=== PATIENT | female | born 1975 | race Caucasian/White ===

== ENCOUNTER 2020-02-25 09:34 | Emergency (ER) | payer MEDICARE, OTHER ==
[~2020-02-25] VITALS: Ht 154.9 cm; Wt 61.2 kg
--- OUTSIDE RECORDS SUMMARY | 2020-02-25 10:22 | XMS REPORT | Clinical Summary ---
Author Author [facility] Organization [facility] Address Unknown Phone Unavailable Care Team Providers Care Account Services Associate Name Role Phone Asked, No Pcp PCP Unavailable Allergies No Known Active Allergies Medications End Date Status Medication Sig Dispensed Refills Start Date Active permethrin (ELIMITE) 5 % Thoroughly 60 g 0 0 cream massage cream 9 from head to soles of feet; also apply on the hairline, neck, scalp, quaker, and forehead; 02/05/2020 tobramycin (Tobrex) 0.3 % Administer 2 5 mL 0 drops drops into 0 the left eye every 6 (six) hours for 5 days. Active Problems Not on file Encounters Care Team Description Date Type Specialty Jose R Baker NP-C [place], Neeraj Car MD Abrasion of left conjunctiva, initial en counter (Primary Dx); Foreign body of left eye, initial encounter 01/31/2020 Emergency Emergency Medicine 01/31/2020 Travel after 02/24/2019 Medical History Medical History Date Comments Disease of thyroid gland Social History Date Tobacco Use Types Packs/Day Years Used Current Every Day Smoker 0.5 Smokeless Tobacco: Never Used Drinks/Week oz/Week Comments Alcohol Use No Alcohol Habits Answer Date Recorded How often do you have a drink containing alcohol? Never 09/20/2018 How many drinks containing alcohol do you have on No t asked a typical day when you are drinking? How often do you have six or more drinks on one Not asked occasion? Sex Assigned at Date Recorded Not on file Date Recorded COVID-19 Exposure Response 01/31/2020 5:34 PM CDT In the last month, have you been in contact with No / Unsure someone who was confirmed or suspected to have Coronavirus / COVID-19? Last Filed Vital Signs Reading Time Taken Comments Vital Sign 164/92 01/31/2020 5:41 PM CDT Blood Pressure 93 01/31/2020 5:41 PM CDT Pulse 37 C (98.6 F) 01/31/2020 5:41 PM CDT Temperature 20 01/31/2020 5:41 PM CDT Respiratory Rate 99% 01/31/2020 5:41 PM CDT Oxygen Saturation - - Inhaled Oxygen Concentration 61.7 kg (136 lb) 01/31/2020 5:41 PM CDT Weight 154.9 cm (5' 1") 01/31/2020 5:41 PM CDT Height 25.7 01/31/2020 5:41 PM CDT Body Mass Index Plan of Treatment Not on file Procedures Comments Procedure Name Priority Date/Time Associated Diag nosis OR IVETTE Barrow,EYE,SUPERF Routine 01/31/2020 CONJUNC 7:09 PM CDT after 02/24/2019 Results * Foreign Body Removal - Ocular (01/31/2020 7:09 PM CDT) Narrative Performed At Jose R Baker NP-C 02/01/20 20 1:04 PM Foreign Body Removal - Ocular Performed by: Jose R Baker NP-C Authorized by: Jose R Baker NP- C Consent: Consent obtained: Verbal Consent given by: Patient Risks discussed: Bleeding, corneal damage, damage to surrounding structures, infection, incomplete remov al, globe perforation, pain, visual impairment and worsening of condition Alternatives discussed: No treatmen t Location: Location: L conjunctival Depth: Superficial Pre-procedure details: Imaging: None Anesthesia (see MAR for exact dosages): Local anesthetic: Tetracaine drops Procedure details: Localization method: Eyelid eversio n Removal mechanism: Moist cotton swa b Foreign bodies recovered: 1 Intact foreign body removal: yes Post-procedure details: OS visual acuity: 20/20 OD visual acuity: 20/30 Confirmation: No additional foreign bodies on visualization Patient tolerance of procedure: Ana Luisa erated well, no immediate complications after 02/24/2019 Insurance Type Payer Benefit Subscriber ID Effective Phone Address Plan / Dates Group HMO U[employer] MEDICAID [employer] [id number] 2019- MERGED WITH [facility] Present [facility] [phone] Advance Directives For more information, please contact: [phone] Patient Canvas Baster Explanation Type Date Recorded Advance Directives, Living Will and Medical Power of Bulk Fluids Handler Advance Directives, 09/20/2018 9:11 AM Living Will and Medical Power of Bulk Fluids Handler
--- OUTSIDE RECORDS SUMMARY | 2020-02-25 10:22 | XMS REPORT | Continuity of Care Document ---
Author Author [facility] t Organization [facility] Address [address] [place] [address] Phone Unavailable Care Team Providers Care Justice Court Deputy Clerk Name Role Phone Asked, Pcp No PCP Unavailable Samuel MEDEIROS-C, Sohan Odell Attphys Gunnar VORA, Josep Pickard Attphys Payers Payer Name Policy Type Policy Number Effective Date Expiration Date S sarah [facility] [place] [facility] [id number]/05/24 [id number] 2019 00:00:00 Clayton Islam Problems This patient has no known problems. Allergies, Adverse Reactions, Alerts Allergy Name Allergy Type Status Severity Reaction(s) Onset Date Inacti ve Date Treating Clinician Comments Source No Known Allergies DA Active U 2018-10-08 00:00:00 [facility] No Known Allergies DA Active U 2018-08-28 00:00:00 [facility] No Known Contrast Allergies DA Active U 2007-12-15 00:00: 00 [facility] No Known Drug Allergies DA Active U 2007-12-15 00:00:00 [facility] No Known Food Allergies DA Active U 2007-12-15 00:00:00 [facility] No Known Other Allergies DA Active U 2007-12-15 00:00:00 [facility] No Known Drug Intolerances DA Active U 2001-04-19 00:00:0 0 [facility] Social History Social Habit Start Date Stop Date Quantity Comments Source History SDOH Alcohol Std Drinks Toribio Campbellist History SDOH Alcohol Binge Toribio Gordillo Sex Assigned At Fredy Gordillo Exposure to SARS-CoV-2 (event) Not sure Toribio Gordillo Cigarettes smoked current (pack per day) - Reported 00:00:00 2020-01-31 00:00:00 Toribio Gordillo Tobacco use and exposure 2020-01-31 00:00:00 2020-01-31 00:00:00 Jeaneth cronin used Toribio Gordillo Alcohol intake 2020-01-31 00:00:00 2020-01-31 00:00:00 Current non-drinker of alcohol (finding) Toribio Gordillo History SDOH Alcohol Frequency 2018-09-20 00:00:00 2018-09-20 00:00:0 0 1 Toribio Gordillo Smoking Status Start Date Stop Date Source Current every day smoker 2020-01-31 00:00:00 Fredy Gordillo Medications Ordered Medication Name Filled Medication Name Start Date Stop Da te Current Medication? Ordering Clinician Indication Dosage Frequency Signature (SIG) Comments Components Source tobramycin (Tobrex) 0.3 % drops 2020-01-31 00:00:00 23:59:00 No 2[drp] Q6H Administer 2 drops into the left eye every 6 (six) hours for 5 days. Toribio Gordillo permethrin (ELIMITE) 5 % cream 2018-09-20 00:00:00 Yes Thoroughly massage cream from head to soles of feet; also apply on the hairline, neck, scalp, alevism, and forehead; Toribio moore Vital Signs Vital Name Observation Time Observation Value Comments Source Systolic blood pressure 2020-01-31 17:41:00 164 mm[Hg] Toribio Gordillo Diastolic blood pressure 2020-01-31 17:41:00 92 mm[Hg] Toribio Gordillo Heart rate 2020-01-31 17:41:00 93 /min Toribio Gordillo Body temperature 2020-01-31 17:41:00 37 Mami [place] Respiratory rate 2020-01-31 17:41:00 20 /min [place] Body height 2020-01-31 17:41:00 154.9 cm Toribio Gordillo Body weight 2020-01-31 17:41:00 61.689 kg Toribio Gordillo BMI 2020-01-31 17:41:00 25.70 kg/m2 Toribio Gordillo Oxygen saturation in Arterial blood by Pulse oximetry 01-30 17:41:00 99 /min Toribio Gordillo Procedures Procedure Date / Time Performed Performing Clinician Sourignacia e RICKY Barrow,EYE,SUPERF CONJUNC 2020-01-31 19:09:00 Donna Baker Encounters Start Date/Time End Date/Time [facility] Source 2020-01-31 00:00:00 2020-01-31 00:00:00 Emergency JOSE R BAKER [facility] [id number] Toribio Gordillo Results Test Description Test Time Test Comments Results Result Comments Source Foreign Body Removal - Ocular 2020-01-31 19:09:00 Jose R Baker, MALA-C 02/01/2020 1:04 PMForeign Body Removal - OcularPerformed by: Jose R Baker NP-CAuthorized by: Jose R Baker SUPPORT ASSOCIATE-C Consent: Consent obtained: Verbal Consent given by: Patient Risks discussed: Bleeding, corneal damage, damage to surrounding structures, infection, incomplete removal, globe perforation, pain, visual impairment and worsening of condition Alternatives discussed: No treatmentLocation: Location: L conjunctival Depth: SuperficialPre-procedure details: Imaging: NoneAnesthesia (see MAR for exact dosages): Local anesthetic: Tetracaine dropsProcedure details: Localization method: Eyelid eversion Removal mechanism: Moist cotton swab Foreign bodies recovered: 1 Intact foreign body removal: yes Post-procedure details: OS visual acuity: 20/20 OD visual acuity: 20/30 Confirmation: No additional foreign bodies on visualization Patient tolerance of procedure: Tolerated well, no immediate complications Toribio moore CT Chest w/o Contrast 2019-07-23 16:49:13 Michael t: BARBER COSTELLO Date/Time07/23/2019 10:54 CSTReason for ExamZ12.2ReportCT CHEST WITHOUT CONTRASTDictation location: [id number]: R05, Z12.2COMPARISON: NonePROCEDURE: Helical CT imaging of the chest was performed without intravenous contrast. Sagittal and coronal reformats were obtained. One or more of the following dose reduction techniques were used: Automated exposure control, adjustment of the mA and/or kV according to patient size, and/or utilization of iterative reconstruction technique.FINDINGS:LUNGS AND LARGE AIRWAYS: The lungs are well-expanded. Minimal scarring is seen in the right middle lobe. A 5 mm nodule is seen in the right middle lobe along the minor fissure (series 3, image 68). A 4 mm subpleural nodule is seen in the posterior left upper lobe (series 3, image 25).PLEURA: No pleural effusion or thickening is identified.HEART: The heart size is normal. No pericardial effusion.VESSELS: Atherosclerotic changes are present in the aorta and coronary arteries.MEDIASTINUM AND JEYSON: No lymphadenopathy.CHEST WALL AND LOWER NECK: Within normal limits.VISUALIZED UPPER ABDOMEN: Within normal limits.BONES: Within normal limits.IMPRESSION:Lung RADS category 2: Benign appearing nodules in the lungs. Continue annual screening with low dose chest CT in 12 months. Final Dictated by: MD Camacho Adam FDictated DT/TM: 07/23/2019 4:44 pmSigned by: MD Camacho Adam FSigned (Electronic Signature): 07/23/2019 4:49 pm - USG AMNIOCENTESIS 2007-08-08 00:00:00 Patient Name: BARBER COSTELLO Unit No: [id number] EXAMS: CPT CODE: [id number] US PREG AFTER 1ST TRI 40201 [id number] USG AMNIOCENTESIS [address] [facility] [address], [place] [address] OBSTETRICAL ULTRASOUND REPORT - Pat. Name: BARBER GUZMÁN Study Date: 07/27/2007 1:02pm Pat. No: [id number] Referring MD: Jorge Velasquez M.D. LMP: 02/27/2007 Fertilizer Supervisor: Julee S. Kashmir GA by LMP: 21.4 weeks , Age: 01 1975, 32 GA by 1st: GA Selected: 18.7 weeks (From Known E) GA by US: 19.0 weeks NAYE: 12/23/2007 Hist/Ind: + AFP, Amnio #3 - MEASUREMENTS AGE GROWTH EVALUATION Measurement GA Range Source % for 18.7 Ratios ------- ------- BPD 4.2 cm 18.6 wk (17.6-19.6) Hadlock BPD 45% FL/BPD 0.74 HC 15.8 cm 18.6 wk (17.0-20.2) Hadlock HC 47% FL/AC 0.22 AC 14.0 cm 19.1 wk (17.1-21.1) Hadlock AC 58% HC/AC 1.13 (1.07 - 1.26) FL 3.1 cm 19.2 wk (17.2-21.3) Hadlock FL 61% CI 0.79 (0.70 - 0.86) HL 3.1 cm 20.3 wk (18.6-22.0) Constanza HL 92% GA for sonogram 19.0 wk (17.6-20.4) Weight Estimate: based on (BPD,HC,AC,FL) Hadlock Weight: 289 gm (247-332) Hadlock : 0lbs, 10oz - CLINICAL SUMMARY Type of Gestation: Shaw Intrauterine in vertex presentation. size is appropriate for gestational age by weight. growth: Consistent with normal growth motion and organs seen: heart motion seen body and limb movements seen Four chamber heart observed Left ventricular outflow tract (LVOT) seen Right ventricular outflow tract (RVOT) seen Normal intracranial anato my seen Umbilical cord insertion in fetus seen stomach, Renal Fossa, Bladder and Spine seen Three vessel umbilical cord noted abnormalities observed: None seen at this exam Placental location: [facility] NAME: BARBER COSTELLO Radiology Department PHYS: Jorge Brewer MD [address] : 1975 AGE: 32 SEX: F [place], [place] [address] LOC: UNK PHONE #: [phone] EXAM DATE: 07/27/2007 STATUS: REG CLI FAX #: [phone] RAD NO: [id number] Page 1 Signed Report (CONTINUED) Patient Name: BARBER COSTELLO Unit No: [id number] EXAMS: CPT CODE: [id number] US PREG AFTER 1ST TRI 59950 [id number] USG AMNIOCENTESIS 38241 <Continued> Posterior Fundal Placental maturity : Grade 0 There is no evidence of placenta previa. Amniotic fluid volume is normal. Uterus and adnexa: No abnormalities seen Amniocentesis successfully performed by Dr. VELASQUEZ. Post procedure sonogram:Demonstrated normal cardiac activity Post procedure sonogram:No evidence of or placental hematoma Thank you for allowing us to see this patient. Tayler Marc M.D. " Manually signed by Tayler Marc M.D. Reported and signed by: Tayler Marc M.D. CC: Jorge Velasquez Technologist: Julee Marlow Probe: Trnscrbd D/ (5146) F.RAD.KXR Advanced To Signed Dt/Tm/User: 08/08/07 (0660) LAINE.KXR [facility] NAME: TRANGBARBER MYKE Radiology Department PHYS: Jorge Brewer MD [address] : 1975 AGE: 32 SEX: F [place] [address] LOC: UNK PHONE #: [phone] EXAM DATE: 07/27/2007 STATUS: REG CLI FAX #: [phone] RAD NO: [id number] Page 2 Signed Report Patient Name: BARBER COSTELLO Unit No: [id number] EXAMS: CPT CODE: [id number] US PREG AFTER TRI 68173 [id number] USG AMNIOCENTESIS 44485 <Continued> [facility] NAME: TRANGKRISTINEBARBER [place] Radiology Department PHYS: Jorge Brewer MD [address] : 1975 AGE: 32 SEX: F [place] [address] LOC: UNK PHONE #: [phone] EXAM DATE: 07/27/2007 STATUS: REG CLI FAX #: [phone] RAD NO: [id number] Page 3 Signed Report - US PREG AFTER 2007-08-08 00:00:00 Pat ient Name: BARBER COSTELLO Unit No: [id number] EXAMS: CPT CODE: [id number] US PREG AFTER TRI 21593 [id number] USG AMNIOCENTESIS [address] [facility] [address] [place], [place] [address] OBSTETRICAL ULTRASOUND REPORT - Pat. Name: BARBER GUZMÁN Study Date: 07/27/2007 1:02pm Pat. No: [id number] Referring MD: Jorge Velasquez M.D. LMP: 02/27/2007 Fertilizer Supervisor: Julee Marlow GA by LMP: 21.4 weeks , Age: 01 1975, 32 GA by 1st: GA Selected: 18.7 weeks (From Known E) GA by US: 19.0 weeks NAYE: 12/23/2007 Hist/Ind: + AFP, Amnio #3 - MEASUREMENTS AGE GROWTH EVALUATION Measurement GA Range Source % for 18.7 Ratios ------- ------- BPD 4.2 cm 18.6 wk (17.6-19.6) Hadlock BPD 45% FL/BPD 0.74 HC 15.8 cm 18.6 wk (17.0-20.2) Hadlock HC 47% FL/AC 0.22 AC 14.0 cm 19.1 wk (17.1-21.1) Hadlock AC 58% HC/AC 1.13 (1.07 - 1.26) FL 3.1 cm 19.2 wk (17.2-21.3) Hadlock FL 61% CI 0.79 (0.70 - 0.86) HL 3.1 cm 20.3 wk (18.6-22.0) Constanza HL 92% GA for sonogram 19.0 wk (17.6-20.4) Weight Estimate: based on (BPD,HC,AC,FL) Hadlock Weight: 289 gm (247-332) Hadlock : 0lbs, 10oz - CLINICAL SUMMARY Type of Gestation: Shaw Intrauterine in vertex presentation. size is appropriate for gestational age by weight. growth: Consistent with normal growth motion and organs seen: heart motion seen body and limb movements seen Four chamber heart observed Left ventricular outflow tract (LVOT) seen Right ventricular outflow tract (RVOT) seen Normal intracranial anato my seen Umbilical cord insertion in fetus seen stomach, Renal Fossa, Bladder and Spine seen Three vessel umbilical cord noted abnormalities observed: None seen at this exam Placental location: [facility] NAME: BARBER COSTELLO Radiology Department PHYS: Jorge Brewer MD [address] : 1975 AGE: 32 SEX: F [place], [place] [address] LOC: UNK PHONE #: [phone] EXAM DATE: 07/27/2007 STATUS: REG CLI FAX #: [phone] RAD NO: [id number] Page 1 Signed Report (CONTINUED) Patient Name: BARBER COSTELLO Unit No: [id number] EXAMS: CPT CODE: [id number] US PREG AFTER 1ST TRI 80036 [id number] USG AMNIOCENTESIS 39538 <Continued> Posterior Fundal Placental maturity : Grade 0 There is no evidence of placenta previa. Amniotic fluid volume is normal. Uterus and adnexa: No abnormalities seen Amniocentesis successfully performed by Dr. VELASQUEZ. Post procedure sonogram:Demonstrated normal cardiac activity Post procedure sonogram:No evidence of or placental hematoma Thank you for allowing us to see this patient. Tayler Marc M.D. " Manually signed by Tayler Marc M.D. Reported and signed by: Tayler Marc M.D. CC: Jorge Velasquez Technologist: Julee Marlow Probe: Trnscrbd D/ (1039) JOVANAXR Advanced To Signed Dt/Tm/User: 08/08/07 (1039) DanielINNANancyLeeannXR [facility] NAME: BARBER COSTELLO Radiology Department PHYS: Jorge Brewer MD [address] : 1975 AGE: 32 SEX: F [place] [address] LOC: UNK PHONE #: [phone] EXAM DATE: 07/27/2007 STATUS: REG CLI FAX #: [phone] RAD NO: [id number] Page 2 Signed Report Patient Name: BARBER COSTELLO Unit No: [id number] EXAMS: CPT CODE: [id number] US PREG AFTER 1ST TRI 95327 [id number] USG AMNIOCENTESIS 13980 <Continued> [facility] NAME: BARBER COSTELLO Radiology Department PHYS: Jorge Brewer MD [address] : 1975 AGE: 32 SEX: F [place] [address] LOC: UNK PHONE #: [phone] EXAM DATE: 07/27/2007 STATUS: REG CLI FAX #: [phone] RAD NO: [id number] Page 3 Signed Report - US PREG EVAL 1ST TRIMTR 2007-05-05 00:00:00 P atient Name: BARBER COSTELLO Unit No: [id number] EXAMS: CPT CODE: [id number] US PREG EVAL 1ST TRIMTR 28428 [id number] US PREG UT TRANSVAGINAL [address] [facility] [address] [place], [place] [address] OBSTETRICAL ULTRASOUND REPORT - Pat. Name: BARBER GUZMÁN Study Date: 05/02/2007 5:17pm Pat. No: [id number] Referring MD: Sergio Rivera M.D. LMP: 02/27/2007 Fertilizer Supervisor: Jo Ann Terry GA by LMP: 09.1 weeks , Age: 01 1975, 31 GA by 1st: GA Selected: 06.4 weeks (Sonographic) GA by US: 06.4 weeks NAYE: 12/23/2007 Hist/Ind: DATES SCAN 2 - MEASUREMENTS AGE GROWTH EVALUATION Measurement GA Range Source % for 06.4 Ratios ------- ------- CRL 0.6 cm 06.4 wk (05.9-06.9) Hadlock CRL 50% GA for sonogram 06.4 wk (05.9-06.9) Fe roxanna Weight Estimate: based on (CRL) Avg Weight: gm (-) - CLINICAL SUMMARY Type of Gestation: Shaw motion and organs seen: heart motion seen Amniotic fluid volume is GEST SAC 18 X 10 X 18 MM. Uterus and adnexa: LT OV CORPUS LUTEUM 23 X 20 X 16 MM Thank you for allowing us to see this patient. Tayler Marc M.D. " Manually signed by Tayler Marc M.D. Reported and signed by: Tayler Marc M.D. CC: Jorge Velasquez Technologist: Jo Ann Terry Probe: Trnscrbd D/ (1615) F.RAD.KXR Advanced To Signed Dt/Tm/User: 05/05/07 (1616) FNancyRADNancyKXR [facility] NAME: BARBER COSTELLO [place] Radiology Department PHYS: Jorge Brewer MD [address] : 1975 AGE: 31 SEX: [place] [address] LOC: UNK PHONE #: [phone] EXAM DATE: 05/02/2007 STATUS: REG CLI FAX #: [phone] RAD NO: [id number] Page 1 Signed Report Patient Name: BARBER COSTELLO Unit No: [id number] EXAMS: CPT CODE: [id number] US PREG EVAL 1ST TRIMTR 01946 [id number] US PREG UT TRANSVAGINAL 24696 <Continued> [facility] NAME: BAREBR COSTELLO [place] Radiology Department PHYS: Jorge Brewer MD [address] : 1975 AGE: 31 SEX: [place] [address] LOC: UNK PHONE #: [phone] EXAM DATE: 05/02/2007 STATUS: REG CLI FAX #: [phone] RAD NO: [id number] Page 2 Signed Report - US PREG UT TRANSVAGINAL 2007-05-05 00:00:00 P atient Name: BARBER COSTELLOFORD Unit No: [id number] EXAMS: CPT CODE: [id number] US PREG EVAL 1ST TRIMTR 98102 [id number] US PREG UT TRANSVAGINAL [address] [address] [place], [place] [address] OBSTETRICAL ULTRASOUND REPORT - Pat. Name: BARBER GUZMÁN Study Date: 05/02/2007 5:17pm Pat. No: [id number] Referring MD: Sergio Rivera M.D. LMP: 02/27/2007 Fertilizer Supervisor: Jo Ann Terry GA by LMP: 09.1 weeks , Age: 01 1975, 31 GA by 1st: GA Selected: 06.4 weeks (Sonographic) GA by US: 06.4 weeks NAYE: 12/23/2007 Hist/Ind: DATES SCAN 2 - MEASUREMENTS AGE GROWTH EVALUATION Measurement GA Range Source % for 06.4 Ratios ------- ------- CRL 0.6 cm 06.4 wk (05.9-06.9) Hadlock CRL 50% GA for sonogram 06.4 wk (05.9-06.9) Fe roxanna Weight Estimate: based on (CRL) Avg Weight: gm (-) - CLINICAL SUMMARY Type of Gestation: Shaw motion and organs seen: heart motion seen Amniotic fluid volume is GEST SAC 18 X 10 X 18 MM. Uterus and adnexa: LT OV CORPUS LUTEUM 23 X 20 X 16 MM Thank you for allowing us to see this patient. Tayler Marc M.D. " Manually signed by Tayler Marc M.D. Reported and signed by: Tayler Marc M.D. CC: Jorge Velasquez Technologist: Jo Ann Terry Probe: Trnscrbd D/ (1615) ARLYN Advanced To Signed Dt/Tm/User: 05/05/07 (1616) ARLYN [facility] NAME: BARBER COSTELLO [place] Radiology Department PHYS: Jorge Brewer MD [address] : 1975 AGE: 31 SEX: F [place] [address] LOC: UNK PHONE #: [phone] EXAM DATE: 05/02/2007 STATUS: REG CLI FAX #: [phone] RAD NO: [id number] Page 1 Signed Report Patient Name: BARBER COSTELLO Unit No: [id number] EXAMS: CPT CODE: [id number] US PREG EVAL 1ST TRIMTR 36971 [id number] US PREG UT TRANSVAGINAL 40297 <Continued> [facility] NAME: BARBER COSTELLO [place] Radiology Department PHYS: Jorge Brewer MD [address] : 1975 AGE: 31 SEX: F [place] [address] LOC: UNK PHONE #: [phone] EXAM DATE: 05/02/2007 STATUS: REG CLI FAX #: [phone] RAD NO: [id number] Page 2 Signed Report - US PREG UT TRANSVAGINAL 2007-04-27 13:46:00 P atient Name: BARBER COSTELLO Unit No: [id number] EXAMS: CPT CODE: [id number] US PREG EVAL 1ST TRIMTR 42581 [id number] US PREG UT TRANSVAGINAL 62504 EXAMINATION: Pelvic ultrasound 04/27/07. CLINICAL HISTORY: Back pain, . FINDINGS: Transabdominal and transvaginal pelvic ultrasound was performed. The uterus measures 12.0 x 5.8 x 7.0 cm. An intrauterine gestational sac is seen measuring 12 x 6 x 14 mm. Within this, a questionable faint yolk sac is seen. No embryo is visualized. No uterine leiomyomata are evident. The right ovary measures 22 x 16 x 21 mm. It is of normal size and sonographic appearance. The left ovary measures 31 x 19 x 25 mm. It contains a 27 x 11 x 14 mm corpus luteum. No free fluid is present in the pelvis. No extra ovarian adnexal masses are evident. IMPRESSION: 1. Intrauterine gestational sac and questionable faint yolk sac are visualized. This appearance is consistent with approximately 5.5 weeks gestational age. This is significantly discordant from the patient's menstrual dates of 8.4 weeks. However, this is the patient's first ultrasound with this . The findings may represent either an early IUP or failed IUP. Correlation with beta-hCG levels is recommend with followup ultrasound in approximately 7-10 days. " Manually signed by Tayler Marc M.D. Reported and signed by: Tayler Marc M.D. CC: Sergio Rivera MD Technologist: Jo Ann Terry Probe: Trnscrbd D/ (1352) F.RAD.ACC/F.RAD.GAC Advanced To Signed Dt/Tm/User: 04/28/07 (0954) F.RAD.ACC Orig Print D/T: (1408) S: [facility] NAME: BARBER COSTELLO Radiology Department PHYS: Sergio Dietz MD [address] : 1975 AGE: 31 SEX: F [place], [place] [address] LOC: Empower[employer]K PHONE #: [phone] EXAM DATE: 04/27/2007 STATUS: DEP ER FAX #: [phone] RAD NO: [id number] Page 1 Signed Report Patient Name: BARBER COSTELLO Unit No: [id number] EXAMS: CPT CODE: [id number] US PREG EVAL 1ST TRIMTR 22613 [id number] US PREG UT TRANSVAGINAL 91498 <Continued> [facility] NAME: BARBER COSTELLO Radiology Department PHYS: Sergio Dietz MD [address] : 1975 AGE: 31 SEX: F [place], [place] [address] LOC: UNK PHONE #: [phone] EXAM DATE: 04/27/2007 STATUS: [facility] ER FAX #: [phone] RAD NO: [id number] Page 2 Signed Report - US PREG EVAL 1ST TRIMTR 2007-04-27 13:46:00 P atient Name: BARBER COSTELLO Unit No: [id number] EXAMS: CPT CODE: [id number] US PREG EVAL 1ST TRIMTR 99638 [id number] US PREG UT TRANSVAGINAL 15927 EXAMINATION: Pelvic ultrasound 04/27/07. CLINICAL HISTORY: Back pain, . FINDINGS: Transabdominal and transvaginal pelvic ultrasound was performed. The uterus measures 12.0 x 5.8 x 7.0 cm. An intrauterine gestational sac is seen measuring 12 x 6 x 14 mm. Within this, a questionable faint yolk sac is seen. No embryo is visualized. No uterine leiomyomata are evident. The right ovary measures 22 x 16 x 21 mm. It is of normal size and sonographic appearance. The left ovary measures 31 x 19 x 25 mm. It contains a 27 x 11 x 14 mm corpus luteum. No free fluid is present in the pelvis. No extra ovarian adnexal masses are evident. IMPRESSION: 1. Intrauterine gestational sac and questionable faint yolk sac are visualized. This appearance is consistent with approximately 5.5 weeks gestational age. This is significantly discordant from the patient's menstrual dates of 8.4 weeks. However, this is the patient's first ultrasound with this . The findings may represent either an early IUP or failed IUP. Correlation with beta-hCG levels is recommend with followup ultrasound in approximately 7-10 days. " Manually signed by Tayler Marc M.D. Reported and signed by: Tayler Marc M.D. CC: Sergio Rivera MD Technologist: Jo Ann Terry Probe: Trnscrbd D/ (3832) F.RAD.ACC/F.RAD.GAC Advanced To Signed Dt/Tm/User: 04/28/07 (9179) F.RAD.ACC Orig Print D/T: (8413) S: [facility] NAME: BARBER COSTELLO [place] Radiology Department PHYS: Sergio Dietz MD [address] : 1975 AGE: 31 SEX: F [place] [address] LOC: UNK PHONE #: [phone] EXAM DATE: 04/27/2007 STATUS: DEP ER FAX #: [phone] RAD NO: [id number] Page 1 Signed Report Patient Name: BARBER COSTELLO Unit No: [id number] EXAMS: CPT CODE: [id number] US PREG EVAL 1ST TRIMTR 22991 [id number] US PREG UT TRANSVAGINAL 67125 <Continued> [facility] NAME: BARBER COSTELLO Radiology Department PHYS: Sergio Dietz MD [address] : 1975 AGE: 31 SEX: F [place] [address] LOC: UNK PHONE #: [phone] EXAM DATE: 04/27/2007 STATUS: DEP ER FAX #: [phone] RAD NO: [id number] Page 2 Signed Report - CT HEAD WO CON 2003-06-11 12:49:00 Name: PAVAN RAYBARBER STRINGER [facility] : 1975 Age/S: 28 / F [address] [place] [address] Unit #: [id number] Loc: [place] [address] Phys: Raheel Mercado MD Acct: [id number] Dis Date: Status: UNK PHONE #: [phone] Exam Date: 06/11/2003 1235 FAX #: [phone] Reason: HEADACHE NECK ACHE BED 6 IN ER EXAMS: CPT CODE: [id number] [place] [address] CT of the brain, 06/11/03: History: Fever. Headache. Findings: A nonenhanced CT of the brain was performed. The ventricles are not dilated and lie in the midline. No masses, mass- effect or fluid collections are identified. No abnormal areas of decreased density or sign of intracranial hemorrhage is observed. There is a suggestion of abnormal opacity in the roof of both maxillary sinuses which are incompletely imaged. Please correlate clinically for the possibility of maxillary sinusitis. Otherwise, bone windows are negative. Impression: 1. Possible maxillary sinusitis. 2. Otherwise, negative CT of the brain. at 0142 Reported and signed by: Celina Webb M.D. CC: Raheel Mercado MD Technologist:Julee Saleh RT(R)(CT) CTDI: DLP: Trnscb Date/Time: 06/11/2003 (7209) RAD.VR Orig Print D/T: S: 06/11/2003 (9477) PAGE 1 Signed Report - CHEST 1V AP/PA 2003-06-11 10:53:00 FAX: Raheel Hurley MD [phone] [place]: St: NAOMI -- Name: BARBER COSTELLO [facility] : 1975 Age/S: 28/F [address] [place] [address] Blvd Unit #: [id number] Loc: [place] [address] Phys: Raheel Mercado MD Acct: [id number] Dis Date: Status: [employer] PHONE #: [phone] Exam Date: 06/11/2003 0939 FAX #: [phone] Reason: FEVER BED 6 IN ER HCG PENDING EXAMS: CPT CODE: [id number] CHEST 1V AP/PA 16110 Portable chest on 06/11/03, 0935 hours: History: Fever. The lungs are clear. No pleural abnormality. The cardiomediastinal silhouette is normal for projection. No acute bone abnormality. Impression: Negative portable chest. at 1058 Reported and signed by: Brant Lazcano M.D. CC: Raheel Mercado MD Technologist: Brenda Parikh; STUDENT Trnscrd Date/Time/By: 06/11/2003 ([id number]) : By: BOYD Orig Print D/T: S: 06/11/2003 ([id number]) PAGE 1 Signed Report
[2020-02-25 10:26] LABS: BASOPHILS # (AUTO) 0.1 (0.0-0.1); BASOPHILS % 0.6 % (0.0-1.0); EOSINOPHILS # (AUTO) 0.1 (0.0-0.4); EOSINOPHILS % 1.2 % (0.0-6.0); HEMATOCRIT 40.6 % (34.2-44.1); LYMPHOCYTES # (AUTO) 1.9 (1.0-3.2); MEAN CORPUSCULAR HEMOGLOBIN 27.9 pg (28-32); MEAN CORPUSCULAR VOLUME 87.1 fL (81-99); MONOCYTES # (AUTO) 0.4 (0.2-0.8); MONOCYTES % 3.8 % (4.4-11.3); NEUTROPHILS # (AUTO) 6.9 (2.1-6.9); NEUTROPHILS % 74.1 % (38.7-80.0); PLATELET COUNT 525 x10e3/uL (140-360); RED BLOOD COUNT 4.66 x10e6/uL (3.6-5.1); RED CELL DISTRIBUTION WIDTH 18.1 % (11.7-14.4)
--- NOTE | 2020-02-25 10:32 | Diagnostic Imaging Report ---
Exam: Head CT without contrast History: Dizziness, elevated blood pressure Comparison studies: None Technique: Axial images were obtained from the skull base to the vertex. Coronal and sagittal images reconstructed from the axial data. Dose modulation, iterative reconstruction, and/or weight based adjustment of the mA/kV was utilized to reduce the radiation dose to as low as reasonably achievable. Radiation dose: Total DLP: 921.4 mGy*cm. Estimated effective dose: DLP x 0.015 Intravenous contrast: None Findings: Scalp: No abnormalities. Bones: No fractures, blastic or lytic lesions. Brain sulci: Appropriate for age. Ventricles: Normal in size and configuration. No hydrocephalus. Extra-axial spaces: No masses, no fluid collection. Parenchyma: No abnormal densities. No masses, hemorrhage, acute or chronic vascular insults. Sellar/suprasellar region: No abnormalities. Craniocervical junction: Patent foramen magnum. No Chiari one malformation. Included paranasal sinuses: Clear. Middle ear cavities and mastoids: Left mastoid tip is partially opacified. Remaining left mastoids, right mastoids and bilateral middle ear cavities are clear. Incidental findings: Subtle after cirrhotic calcifications in the carotid siphons. IMPRESSION: No acute intracranial abnormalities. Signed by: Dr. Irvin Wood M.D. on 02/25/2020 10:29 AM
[2020-02-25 10:38] LABS: INR 1.02; PARTIAL THROMBOPLASTIN TIME 36.9 seconds (23.8-35.5); PROTHROMBIN TIME 13.9 seconds (11.9-14.5)
--- NOTE | 2020-02-25 10:39 | Diagnostic Imaging Report ---
EXAMINATION: CHEST 2 VIEWS INDICATION: Dizziness COMPARISON: None FINDINGS: LINES/TUBES:None LUNGS:The lungs are well-inflated. No focal consolidation or pulmonary edema. PLEURA:No pleural effusion or pneumothorax. MEDIASTINUM:The cardiomediastinal silhouette appears normal in size and shape. BONES/SOFT TISSUES:No acute osseous injury. ABDOMEN:No free air under the diaphragm. IMPRESSION: No focal pneumonia or pulmonary edema. Signed by: Mahad Blackman MD on 02/25/2020 10:35 AM
[2020-02-25 10:57] LABS: ALBUMIN 4.3 g/dL (3.5-5.0); ANION GAP 15.7 mmol/L (8-16); CALCIUM 9.5 mg/dL (8.4-10.2); CREATININE, SERUM 1.05 mg/dL (0.57-1.11)
[2020-02-25 11:09] LABS: POTASSIUM 2.7 mmol/L (3.5-5.1)
[2020-02-25] MEDS ORDERED: POTASSIUM CHLORIDE 20 MEQ TAB CR PO STA (11:13)
--- NOTE | 2020-02-25 11:24 | NUR ---
Pt anxious walking about, takes off monitor and walks outside and into lobby to "get a gatorade from him." Pt cooperative. Pt asked for us to call [facility] and let them know she is in er. Explained to pt we are not allowed to release that information and pt states she understood and had her call them.
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
[2020-02-25] MEDS ORDERED: MECLIZINE HCL25 MG PO (11:35)
== END 2020-02-25 11:45 | disposition home or self-care (01) ==
LOC: ER 10:19
DX: R42 Dizziness and giddiness (principal); E87.6 Hypokalemia; R06.02 Shortness of breath; I10 Essential (primary) hypertension; E03.9 Hypothyroidism, unspecified; F17.210 Nicotine dependence, cigarettes, uncomplicated
CPT/HCPCS: 36415; 70450; 71046; 80053; 80320; 85025; 85610; 85730; 93005; 99284

== ENCOUNTER 2020-02-27 14:23 | Emergency (ER) | payer OTHER ==
[~2020-02-27] VITALS: Ht 154.9 cm; Wt 61.2 kg
[~2020-02-27 14:23] MED LIST: MECLIZINE HCL25 MG PO
== END 2020-02-27 14:45 | disposition home or self-care (01) ==
LOC: ER 14:42
DX: Z20.89 Contact with and (suspected) exposure to other communicable diseases (principal); I10 Essential (primary) hypertension; E03.9 Hypothyroidism, unspecified; F17.210 Nicotine dependence, cigarettes, uncomplicated
CPT/HCPCS: 99282

== ENCOUNTER 2020-07-21 07:15 | Emergency (ER) | payer OTHER ==
[~2020-07-21] VITALS: Ht 154.9 cm; Wt 61.2 kg
== END 2020-07-21 08:00 | disposition home or self-care (01) ==
LOC: ER 07:41
DX: J40 Bronchitis, not specified as acute or chronic (principal); R05 Cough; R06.02 Shortness of breath; I10 Essential (primary) hypertension; E03.9 Hypothyroidism, unspecified; F17.210 Nicotine dependence, cigarettes, uncomplicated
CPT/HCPCS: 99283

== ENCOUNTER 2020-08-21 15:29 | Emergency (ER) | payer OTHER ==
[~2020-08-21] VITALS: Ht 154.9 cm; Wt 61.2 kg
[2020-08-21] MEDS ORDERED: FLUORESCEIN SOD(OPTH) 1 MG STRP OP ONE (16:00)
[2020-08-21] MEDS ORDERED: TETRACAINE HCL 0.5% OPTH SOLN 4 ML BTL OP ONE (16:00)
[2020-08-21] MEDS ORDERED: EYE IRRIGATION (OPTH) 120 ML BTL OP ONE (16:00)
== END 2020-08-21 18:41 | disposition home or self-care (01) ==
LOC: ER 16:23
DX: H10.9 Unspecified conjunctivitis (principal)
CPT/HCPCS: 99283

== ENCOUNTER 2020-11-17 11:36 | Emergency (ER) | payer OTHER ==
[~2020-11-17] VITALS: Ht 154.9 cm; Wt 61.2 kg
[2020-11-17] MEDS ORDERED: AUGMENTIN 875-1 EACH PO (12:03)
== END 2020-11-17 14:11 | disposition home or self-care (01) ==
LOC: ER 11:41
DX: L03.115 Cellulitis of right lower limb (principal); W55.01XA Bitten by cat, initial encounter; I10 Essential (primary) hypertension; E03.9 Hypothyroidism, unspecified
CPT/HCPCS: 99283

== ENCOUNTER 2020-11-24 00:30 | Emergency (ER) | payer OTHER ==
[~2020-11-24] VITALS: Ht 154.9 cm; Wt 61.2 kg
[~2020-11-24 00:30] MED LIST changes: +AUGMENTIN 875-1 EACH PO
[2020-11-24] MEDS ORDERED: FLUORESCEIN SOD(OPTH) 1 MG STRP ONE (00:48)
== END 2020-11-24 00:50 | disposition home or self-care (01) ==
LOC: ER 00:43
DX: H10.9 Unspecified conjunctivitis (principal); I10 Essential (primary) hypertension; E03.9 Hypothyroidism, unspecified
CPT/HCPCS: 99282

== ENCOUNTER 2021-02-03 12:49 | Emergency (ER) | payer OTHER ==
[~2021-02-03] VITALS: Ht 154.9 cm; Wt 61.2 kg
[2021-02-03] MEDS ORDERED: PREDNISONE20 MG PO (15:27)
[2021-02-03] MEDS ORDERED: ALBUTEROL1.25 MG/3 NEB (15:27)
[2021-02-03] MEDS ORDERED: AZITHROMYCIN250 MG PO (15:27)
== END 2021-02-03 15:39 | disposition home or self-care (01) ==
LOC: ER 13:05
DX: J40 Bronchitis, not specified as acute or chronic (principal); E03.9 Hypothyroidism, unspecified; I10 Essential (primary) hypertension; Z20.822 Contact with and (suspected) exposure to COVID-19; E87.6 Hypokalemia
CPT/HCPCS: 71045; 99282; U0002

== ENCOUNTER 2021-04-05 19:32 | Emergency (ER) | payer OTHER ==
[~2021-04-05] VITALS: Ht 154.9 cm; Wt 61.2 kg
[~2021-04-05 19:32] MED LIST changes: +ALBUTEROL1.25 MG/3 NEB; +AZITHROMYCIN250 MG PO; +PREDNISONE20 MG PO
[2021-04-05] MEDS ORDERED: EYE IRRIGATION (OPTH) 120 ML BTL OP ONE ×2 (19:45)
[2021-04-05] MEDS ORDERED: EYE IRRIGATION (OPTH) 120 ML BTL ONE (19:52)
== END 2021-04-05 20:04 | disposition home or self-care (01) ==
LOC: ER 19:38
DX: H10.213 Acute toxic conjunctivitis, bilateral (principal); Y93.E8 Activity, other personal hygiene; I10 Essential (primary) hypertension; E03.9 Hypothyroidism, unspecified
CPT/HCPCS: 99283

== ENCOUNTER 2021-04-09 19:13 | Emergency (ER) | payer OTHER ==
[~2021-04-09] VITALS: Ht 154.9 cm; Wt 61.2 kg
[2021-04-09] MEDS ORDERED: TRIAMCINOLONE A15 G1 TOP (19:53)
== END 2021-04-09 20:11 | disposition home or self-care (01) ==
LOC: ER 19:24
DX: R21 Rash and other nonspecific skin eruption (principal); R50.9 Fever, unspecified; I10 Essential (primary) hypertension; E03.9 Hypothyroidism, unspecified
CPT/HCPCS: 99282

== ENCOUNTER 2021-04-24 13:04 | Emergency (ER) | payer OTHER ==
[~2021-04-24] VITALS: Ht 154.9 cm; Wt 61.2 kg
[~2021-04-24 13:04] MED LIST changes: +TRIAMCINOLONE A15 G1 TOP
[2021-04-24] MEDS ORDERED: TETRACAINE HCL 0.5% OPTH SOLN 4 ML BTL OP ONE (13:30)
[2021-04-24] MEDS ORDERED: FLUORESCEIN SOD(OPTH) 1 MG STRP OP ONE (13:30)
[2021-04-24] MEDS ORDERED: ERYTHROMYCIN (OPTH) 3.5 GM OINT OP ONE (13:45)
[2021-04-24] MEDS ORDERED: ELIMITE60 GM TOP (14:12)
[2021-04-24] MEDS ORDERED: HYDROXYZINE HCL10 MG PO (14:14)
== END 2021-04-24 14:29 | disposition home or self-care (01) ==
LOC: ER 13:17
DX: S05.02XA Injury of conjunctiva and corneal abrasion without foreign body, left eye, initial encounter (principal); S05.01XA Injury of conjunctiva and corneal abrasion without foreign body, right eye, initial encounter; H10.9 Unspecified conjunctivitis; Z20.89 Contact with and (suspected) exposure to other communicable diseases; I10 Essential (primary) hypertension; E03.9 Hypothyroidism, unspecified
CPT/HCPCS: 99282

== ENCOUNTER 2022-04-11 16:25 | Emergency (ER) | payer OTHER ==
[~2022-04-11] VITALS: Ht 154.9 cm; Wt 61.2 kg
[~2022-04-11 16:25] MED LIST changes: +ELIMITE60 GM TOP; +HYDROXYZINE HCL10 MG PO
[2022-04-11] MEDS ORDERED: AMOX TR-K CLV1 EAC2 PO (16:34)
[2022-04-11] MEDS ORDERED: TETANUS/DIPHTHERIA TOX ADULT 0.5 ML SYR IM ONE (16:45)
== END 2022-04-11 17:50 | disposition home or self-care (01) ==
LOC: ER 16:29
DX: S61.551A Open bite of right wrist, initial encounter (principal); W55.01XA Bitten by cat, initial encounter; Y92.89 Other specified places as the place of occurrence of the external cause; I10 Essential (primary) hypertension; E03.9 Hypothyroidism, unspecified
CPT/HCPCS: 99282